=== PATIENT | female | born 1935 | race Caucasian/White ===

== ENCOUNTER → 2017-11-01 | Outpatient (CLI) | payer MEDICARE ==
[~2017-11-01] MED LIST: CHOL100046 PO; Gabapentin PO; HYDR-4060 PO; LEVO75TA4 PO; METO50 PO; OMEP20TA25 PO; RIVA10TA PO; SIMV40TA59 PO
== END ==
LOC: RAH 11:51
PROVIDERS: ATTEND Internal Medicine
DX: M47.892 Other spondylosis, cervical region (principal)
CPT/HCPCS: 72040

== ENCOUNTER 2019-04-06 10:10 | Observation (INO) | payer MEDICARE, OTHER ==
[~2019-04-06] VITALS: Ht 162.6 cm; Wt 79.1 kg
[2019-04-06] MEDS ORDERED: SODIUM CHLORIDE 0.9% 1000ML 1,000 ML IV ONE (10:26)
[2019-04-06 10:30] LABS: BASOPHILS % (AUTO) 0.5 % (0.0-5.0); EOSINOPHILS % (AUTO) 0.2 % (0.0-8.0); HEMATOCRIT 37.4 % (36-48); LYMPHOCYTES % (AUTO) 7.2 % (21.0-51.0); MEAN CORPUSCULAR HEMOGLOBIN 27.4 pg (27.0-33.0); MEAN CORPUSCULAR HGB CONC 32.4 g/dL (32.0-36.0); MEAN CORPUSCULAR VOLUME 84.8 fL (79-99); MONOCYTES % (AUTO) 8.1 % (3.0-13.0); PLATELET COUNT (AUTO) 249 K/uL (130-400); RED BLOOD CELL COUNT(AUTO) 4.41 MIL/uL (4.00-5.50); RED CELL DISTRIBUTION WIDTH 14.7 % (11.0-15.5)
[2019-04-06 10:41] LABS: CREATININE 0.9 mg/dL (0.5-1.5); POTASSIUM 3.7 mmol/L (3.5-5.1)
[2019-04-06 10:45] LABS: ALBUMIN 3.2 g/dL (3.5-5.0); BILIRUBIN,TOTAL 0.4 mg/dL (0.2-1.0); TOTAL PROTEIN, SERUM 7.1 g/dL (6.0-8.3)
[2019-04-06 11:25] LABS: APPEARANCE,URINE Turbid (CLEAR); BILIRUBIN,URINE Negative (NEGATIVE); COLOR,URINE Yellow (YELLOW); GLUCOSE, URINE (UA) Negative (NEGATIVE); KETONES,URINE Negative (NEGATIVE); LEUKOCYTE ESTERASE ,URINE Large (NEGATIVE); NITRATE,URINE Positive (NEGATIVE); OCCULT BLOOD,URINE Moderate (NEGATIVE); PH,URINE 6.5 (5.0-8.0); PROTEIN,URINE Negative (NEGATIVE)
[2019-04-06 11:35] LABS: BACTERIA,URINE Many /HPF (None Seen); WBC,URINE 51-100 /HPF (0-1)
[2019-04-06] MEDS ORDERED: CEFTRIAXONE SODIUM 1 GM ONE (12:34)
[2019-04-06 13:07] LABS: T4 (THYROXINE) 9.1 ug/dL (4.7-13.3); THYROID STIMULATING HORMONE 1.35 uIU/mL (0.36-3.74)
[2019-04-06 14:16] VITALS: BP 127/73
[2019-04-06] MEDS ORDERED: BUSPIRONE HCL 5 MG TABLET PO PRN (14:30)
[2019-04-06] MEDS ORDERED: AEC81 PO (14:39)
[2019-04-06] MEDS ORDERED: MONT10TA24 PO (14:39)
[2019-04-06] MEDS ORDERED: BUDE10.2 IH (14:39)
[2019-04-06] MEDS ORDERED: TYL3 PO (14:39)
[2019-04-06] MEDS ORDERED: TOPI100T31 PO (14:39)
[2019-04-06] MEDS ORDERED: Gabapentin PO (14:39)
[2019-04-06] MEDS ORDERED: BUSP15 PO (14:39)
[2019-04-06] MEDS ORDERED: FLUT16H NS (14:39)
[2019-04-06] MEDS ORDERED: BIFI4CAP PO (14:39)
[2019-04-06] MEDS ORDERED: DiphenhydrAMINE HCL 50 MG/ML VIAL IV PRN (14:45)
[2019-04-06] MEDS ORDERED: DIPHENHYDRAMINE HCL 25 MG CAPSULE PO PRN (14:45)
[2019-04-06] MEDS ORDERED: POTASSIUM CHLORIDE 10% ELIXIR 20 MEQ/15 ML UDCUP PO PRN (14:45)
[2019-04-06] MEDS ORDERED: ACETAMINOPHEN 325 MG TAB PO PRN ×2 (14:45)
[2019-04-06] MEDS ORDERED: ONDANSETRON HCL 4 MG/2 ML VIAL IV PRN (14:45)
[2019-04-06] MEDS ORDERED: MAG HYDROX/AL HYDROX/SIMETH ES 30 ML SUSP UDCUP PO PRN (14:45)
[2019-04-06] MEDS ORDERED: GUAIFENESIN-DM 200/20 MG 10 ML PO PRN (14:45)
[2019-04-06] MEDS ORDERED: POTASSIUM CHLORIDE 20MEQ/100ML 100 ML IV PRN (14:45)
[2019-04-06] MEDS ORDERED: LIDOCAINE HCL-MPF 1% 2ML VIAL IJ PRN (14:45)
[2019-04-06] MEDS ORDERED: POTASSIUM CHLORIDE 20 MEQ ERTAB PO PRN (14:45)
[2019-04-06] MEDS ORDERED: ALBUTEROL SULFATE 0.083% 2.5 MG/3 ML INH IH PRN (14:45)
[2019-04-06] MEDS ORDERED: CEFTRIAXONE SODIUM 1 GM IV SCH (14:45)
--- NOTE | 2019-04-06 15:30 | NUR ---
RT REPORTED THAT PATIENT HAD REFUSED THE BREATHING TREATMENT.
--- NOTE | 2019-04-06 15:32 | NUR ---
Patient stated she did not want treatments, informed Sarah WALLACE. Addendum: 04/06/19 at 1533 by GOPAL BOOKER RT Amended: Links added.
[2019-04-06] MEDS: SODIUM CHLORIDE 0.9% 1000ML 1,000 ML IV SCH (15:45)
[2019-04-06 16:25] VITALS: BP 109/60
[2019-04-06 19:05] VITALS: BP 122/60
[2019-04-06] MEDS ORDERED: TOPIRAMATE 100 MG TAB PO SCH (21:00)
[2019-04-06] MEDS ORDERED: GABAPENTIN 100 MG CAPSULE PO SCH (21:00)
[2019-04-06] MEDS: METOPROLOL TARTRATE 50 MG TAB PO SCH (22:20)
[2019-04-06] MEDS: SIMVASTATIN 20 MG TABLET PO SCH (22:20)
[2019-04-06 23:10] VITALS: BP 101/57
[2019-04-07] MEDS: SODIUM CHLORIDE 0.9% 1000ML 1,000 ML IV SCH ×3 (01:35→21:25)
[2019-04-07 03:10] VITALS: BP 105/52
[2019-04-07 04:51] LABS: HEMATOCRIT 35.5 % (36-48); MEAN CORPUSCULAR HEMOGLOBIN 27.5 pg (27.0-33.0); MEAN CORPUSCULAR HGB CONC 32.8 g/dL (32.0-36.0); PLATELET COUNT (AUTO) 239 K/uL (130-400); RED BLOOD CELL COUNT(AUTO) 4.23 MIL/uL (4.00-5.50); RED CELL DISTRIBUTION WIDTH 14.8 % (11.0-15.5); WHITE BLOOD COUNT (AUTO) 12.4 K/uL (4.8-10.8)
[2019-04-07 05:16] LABS: CREATININE 0.8 mg/dL (0.5-1.5); POTASSIUM 3.6 mmol/L (3.5-5.1)
[2019-04-07] MEDS: ALBUTEROL SULFATE 0.083% 2.5 MG/3 ML INH IH SCH ×2 (06:00→11:01)
[2019-04-07] MEDS: BUDESONIDE 0.5 MG/2 ML INH IH SCH (06:00)
[2019-04-07 07:59] VITALS: BP 103/63
[2019-04-07] MEDS ORDERED: BUDE10.2 IH (08:24)
[2019-04-07] MEDS ORDERED: OMEP20TA25 PO (08:24)
[2019-04-07] MEDS ORDERED: TYL3 PO (08:24)
[2019-04-07] MEDS ORDERED: CHOL500051 PO (08:24)
[2019-04-07] MEDS ORDERED: FLUT16H NS (08:24)
[2019-04-07] MEDS: PANTOPRAZOLE SODIUM 40 MG TABLET.DR PO SCH (08:51)
[2019-04-07] MEDS: MONTELUKAST SODIUM 10 MG TAB PO SCH (08:51)
[2019-04-07] MEDS: ENOXAPARIN SODIUM 30 MG/0.3 ML SQ SCH (08:54)
[2019-04-07] MEDS ORDERED: CEFTRIAXONE SODIUM 1 GM IVP SCH (09:00)
[2019-04-07] MEDS: METOPROLOL TARTRATE 50 MG TAB PO SCH ×2 (11:47→21:24)
[2019-04-07 12:00] VITALS: BP 124/57
[2019-04-07] MEDS ORDERED: LOPERAMIDE HCL 2 MG CAP PO PRN (14:15)
[2019-04-07] MEDS: METRONIDAZOLE 500 MG TABLET PO SCH ×2 (15:06→21:25)
[2019-04-07] MEDS: METHYLPREDNISOLONE SOD SUCC 125MG/2ML VIAL IVP SCH ×2 (15:06→21:25)
[2019-04-07 16:00] VITALS: BP 121/73
--- NOTE | 2019-04-07 18:02 | NUR ---
cm note met with patient and states resides athome alone, uses quad cane and walker, no provider, no hh, or services. does own self care. [facility] dc plan is to home with her son that resides in [facility], [place], [facility] by [facility], he will come back again tomorrow when ready for dc. he spoke to dr draper today. Addendum: 04/07/19 at 1806 by LIUDMILA GONZALEZ CM Amended: Links added.
[2019-04-07] MEDS: LEVOTHYROXINE 75 MCG TABLET PO SCH (18:30)
[2019-04-07 20:00] VITALS: BP 127/67
[2019-04-07] MEDS: SIMVASTATIN 20 MG TABLET PO SCH (21:25)
[2019-04-08] VITALS: BP 108/60
[2019-04-08] MEDS: ALBUTEROL SULFATE 0.083% 2.5 MG/3 ML INH IH SCH ×3 (00:10→10:57)
[2019-04-08] MEDS: METHYLPREDNISOLONE SOD SUCC 125MG/2ML VIAL IVP SCH (01:49)
[2019-04-08 04:00] VITALS: BP 116/67
[2019-04-08 05:40] LABS: BASOPHILS % (AUTO) 0.1 % (0.0-5.0); HEMATOCRIT 35.3 % (36-48); LYMPHOCYTES % (AUTO) 5.7 % (21.0-51.0); MEAN CORPUSCULAR HEMOGLOBIN 27.7 pg (27.0-33.0); MEAN CORPUSCULAR HGB CONC 32.9 g/dL (32.0-36.0); MEAN CORPUSCULAR VOLUME 84.3 fL (79-99); NEUTROPHILS % (AUTO) 92.2 % (40.0-77.0); PLATELET COUNT (AUTO) 234 K/uL (130-400); RED BLOOD CELL COUNT(AUTO) 4.19 MIL/uL (4.00-5.50); RED CELL DISTRIBUTION WIDTH 14.9 % (11.0-15.5); WHITE BLOOD COUNT (AUTO) 11.9 K/uL (4.8-10.8)
[2019-04-08] MEDS: BUDESONIDE 0.5 MG/2 ML INH IH SCH (06:00)
[2019-04-08] MEDS: LEVOTHYROXINE 75 MCG TABLET PO SCH (06:30)
[2019-04-08] MEDS: METRONIDAZOLE 500 MG TABLET PO SCH (06:52)
[2019-04-08] MEDS: SODIUM CHLORIDE 0.9% 1000ML 1,000 ML IV SCH (06:52)
[2019-04-08 07:56] VITALS: BP 157/79
[2019-04-08] MEDS ORDERED: PRED10TA3 PO (09:13)
[2019-04-08] MEDS ORDERED: CEPH500C2 PO (09:13)
[2019-04-08] MEDS ORDERED: CEPHALEXIN 500 MG CAPSULE PO SCH (09:30)
[2019-04-08] MEDS ORDERED: LOPE-198 PO (09:35)
[2019-04-08] MEDS ORDERED: PREDNISONE 20 MG TABLET PO SCH (10:00)
[2019-04-08] MEDS: PANTOPRAZOLE SODIUM 40 MG TABLET.DR PO SCH (10:04)
[2019-04-08] MEDS: MONTELUKAST SODIUM 10 MG TAB PO SCH (10:04)
[2019-04-08] MEDS: METOPROLOL TARTRATE 50 MG TAB PO SCH (10:04)
[2019-04-08] MEDS: ENOXAPARIN SODIUM 30 MG/0.3 ML SQ SCH (10:05)
[2019-04-08] MEDS ORDERED: DiphenhydrAMINE HCL 50 MG/ML VIAL IV ONE (11:15)
[2019-04-08] MEDS ORDERED: DEXAMETHASONE 10MG/ML 1ML VIAL 0 MG in SODIUM CHLORIDE 0.9% 50 ML IV ONE (11:15)
--- NOTE | 2019-04-08 14:03 | NUR ---
PATIENT DISCHARGE PATIENT DISCHARGED, IV DISCONTINUED, CATHLON INTACT, BLEEDING CONTROLLED, PATIENT TOLERATED WITHOUT INCIDENT.
== END 2019-04-08 14:05 | disposition home or self-care (01) ==
LOC: EDH 10:10 → EDHIP 12:52 → 3AH 13:38
PROVIDERS: ADMIT Internal Medicine; ATTEND Internal Medicine
DX: R55 Syncope and collapse (principal); E86.0 Dehydration; B02.29 Other postherpetic nervous system involvement; E03.9 Hypothyroidism, unspecified; E78.5 Hyperlipidemia, unspecified; I12.9 Hypertensive chronic kidney disease with stage 1 through stage 4 chronic kidney disease, or unspecified chronic kidney disease; N18.3 Chronic kidney disease, stage 3 (moderate); I70.0 Atherosclerosis of aorta; K31.84 Gastroparesis; K21.9 Gastro-esophageal reflux disease without esophagitis; K52.9 Noninfective gastroenteritis and colitis, unspecified; M48.061 Spinal stenosis, lumbar region without neurogenic claudication; M54.16 Radiculopathy, lumbar region; J30.9 Allergic rhinitis, unspecified; J44.9 Chronic obstructive pulmonary disease, unspecified; K57.90 Diverticulosis of intestine, part unspecified, without perforation or abscess without bleeding; M47.9 Spondylosis, unspecified; M85.80 Other specified disorders of bone density and structure, unspecified site; M96.1 Postlaminectomy syndrome, not elsewhere classified; N39.0 Urinary tract infection, site not specified; R47.02 Dysphasia; R73.03 Prediabetes; F11.20 Opioid dependence, uncomplicated; F32.5 Major depressive disorder, single episode, in full remission; F41.9 Anxiety disorder, unspecified; Z79.51 Long term (current) use of inhaled steroids; Z79.82 Long term (current) use of aspirin; Z79.890 Hormone replacement therapy; Z80.0 Family history of malignant neoplasm of digestive organs; Z82.3 Family history of stroke; Z82.49 Family history of ischemic heart disease and other diseases of the circulatory system; Z87.891 Personal history of nicotine dependence; Z90.710 Acquired absence of both cervix and uterus; Z79.899 Other long term (current) drug therapy
CPT/HCPCS: 36415 ×3; 80048; 80053; 81001; 83630; 83690; 84436; 84443; 84484; 85025 ×2; 85027; 87040 ×2; 87046; 87077; 87088; 87186; 87324; 93005; 94664; 96361 ×3; 96372 ×2; 96374; 96375; 96376 ×2; 97039; 97116 ×2; 97161; 99284; G0378 ×49; G8978; G8979; G8980; G8981; G8982; G8983; J0696 ×2; J1650 ×2; J2930 ×4; J7030 ×3

== ENCOUNTER → 2019-06-20 | Outpatient (CLI) | payer OTHER ==
[~2019-06-20] MED LIST changes: +AEC81 PO; +BIFI4CAP PO; +BUDE10.2 IH; +BUSP15 PO; +CEPH500C2 PO; -CHOL100046 PO; +CHOL500051 PO; +FLUT16H NS; -HYDR-4060 PO; +LOPE-198 PO; +MONT10TA24 PO; +PRED10TA3 PO; +REGADENOSON 0.4 MG/5 ML PF SYG IVP SCH; -RIVA10TA PO; +TYL3 PO
== END | disposition home or self-care (01) ==
LOC: RAH 08:31
PROVIDERS: ATTEND Internal Medicine
DX: R07.9 Chest pain, unspecified (principal)
CPT/HCPCS: 78452; 93017; 96374; A9500 ×2; J2785